=== PATIENT | male | born 1995 | race Caucasian/White ===

== ENCOUNTER 2017-07-03 07:25 | Day surgery (SDC) | payer OTHER ==
[~2017-07-03] VITALS: Ht 170.2 cm; Wt 92.1 kg
[~2017-07-03 07:25] MED LIST: ALBU90OI INH; AMOX500 PO; AZIT500 PO; CITA20 PO; Cleocin HCl300 MG PO; DIPH12.5EL PO; FLUC200 PO; HYDACE5 PO; IBUP600 PO; Mupirocin22 GM TP; NEOPOLHYDS AD; OSEL75CA PO; PRED1; PRED10 PO; PSEU120ER PO; Prilosec10 M1; RXDIPHSY PO
== END 2017-07-03 08:47 | disposition home or self-care (01) ==
LOC: ORSCMMR 07:25
PROVIDERS: Internal Medicine Gastroenterology
PROC: 0DB48ZX Excision of Esophagogastric Junction, Via Natural or Artificial Opening Endoscopic, Diagnostic (ICD-10-PCS; principal; 2017-07-03 08:00)
PROC: 0DB98ZX Excision of Duodenum, Via Natural or Artificial Opening Endoscopic, Diagnostic (ICD-10-PCS; principal; 2017-07-03 08:00)
PROC: 0DB68ZX Excision of Stomach, Via Natural or Artificial Opening Endoscopic, Diagnostic (ICD-10-PCS; principal; 2017-07-03 08:00)
DX: K21.9 Gastro-esophageal reflux disease without esophagitis (principal); R11.2 Nausea with vomiting, unspecified; R10.9 Unspecified abdominal pain; F43.10 Post-traumatic stress disorder, unspecified; F41.9 Anxiety disorder, unspecified; Z79.899 Other long term (current) drug therapy
CPT/HCPCS: 88305; 88312; 88342; J2250; J7120

== ENCOUNTER 2024-02-13 18:15 | Emergency (ER) | payer OTHER ==
[~2024-02-13] VITALS: Ht 175.3 cm; Wt 86.2 kg
[2024-02-13 18:31] VITALS: BP 163/112
[2024-02-13] MEDS ORDERED: PROZAC40 MG PO (18:38)
[2024-02-13] MEDS ORDERED: Ketorolac Tromethamine 15mg Vial IM ONE (19:25)
[2024-02-13] MEDS ORDERED: Lidocaine 4% 1 Patch TOP ONE (19:25)
[2024-02-13] MEDS ORDERED: LIDOCAINE1 EACH TOP (19:34)
== END 2024-02-13 19:48 | disposition home or self-care (01) ==
LOC: ER 18:15
DX: M54.6 Pain in thoracic spine (principal); Z79.899 Other long term (current) drug therapy; Z88.2 Allergy status to sulfonamides
CPT/HCPCS: 96372; 99283-25; A9270; J1885

== ENCOUNTER 2024-04-02 10:19 | Emergency (ER) | payer OTHER ==
[~2024-04-02] VITALS: Ht 175.3 cm; Wt 88.5 kg
[~2024-04-02 10:19] MED LIST changes: +LIDOCAINE1 EACH TOP; +PROZAC40 MG PO
[2024-04-02 10:24] VITALS: BP 97/59
== END 2024-04-02 11:12 | disposition home or self-care (01) ==
LOC: ER 10:19
DX: M54.6 Pain in thoracic spine (principal); F43.10 Post-traumatic stress disorder, unspecified; Z79.899 Other long term (current) drug therapy; Z88.2 Allergy status to sulfonamides
CPT/HCPCS: 99282

== ENCOUNTER 2024-05-10 09:40 | Emergency (ER) | payer OTHER ==
[~2024-05-10] VITALS: Ht 172.7 cm; Wt 86.2 kg
[2024-05-10 10:18] VITALS: BP 146/84
== END 2024-05-10 11:31 | disposition home or self-care (01) ==
LOC: ER 09:40
DX: B34.9 Viral infection, unspecified (principal); F43.10 Post-traumatic stress disorder, unspecified; Z79.899 Other long term (current) drug therapy; Z88.2 Allergy status to sulfonamides
CPT/HCPCS: 99283